=== PATIENT | male | born 1950 | race Caucasian/White ===

== ENCOUNTER → 2017-02-03 | Outpatient (CLI) | payer MEDICARE, BC ==
[~2017-02-03] MED LIST: CEFD300C PO; METH4TAB27 PO
[2017-02-03 14:21] VITALS: BP 149/79
--- NOTE | 2017-02-03 14:21 | Urgent Care T Sheet Gen (E) ---
Intake General Temperature (Fahrenheit): 98.5 Pulse: 59 Blood Pressure Systolic: 149 Blood Pressure Diastolic: 79 Respirations: 18 SPO2: 98 Description of Symptoms Patient presents with sore throat x 2 months. Patient states his throat is consistently sore. Notes PND, throat clearing and hoarse voice. States he could see a pus pocket over the weekend which ruptured. No fever. Patient states he has allergies and takes intermittent OTC meds. 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 History of Present Illness Allergies: Coded Allergies: No Known Drug Allergies (Unverified , 01/31/16) Respiratory Constitutional Symptoms: No syptoms reported EENTM: Nose Congestion Throat pain Throat swelling Respiratory: No symptoms reported Cardiovascular: No symptoms reported All Other Systems Reviewed Remaining Systems: All other systems reviewed with negative findings Past Dljwgaa-Gmvfwy-Fwrwvt Hx Surgeries/Hospitalizations Hospitalization/Surgery Hx: HTN Physical Exam Physical Exam General Appearance: WD/WN No apparent distress Eyes, Ears, Nose, Throat Ex: TMs normal Pharyngeal erythema (red streaks, PND , clearly irritated throat) Other (pale nasal turbinates with clear nasal drainage) Neck Exam: SuppleNo Lymphadenopathy Respiratory Exam: Lungs clear Normal breath sounds Cardiovascular Exam: Regular rate, rhythm Departure Urgent Care Impression Impression: Primary Impression: Allergic rhinitis Qualified Code: J30.1 - Allergic rhinitis due to pollen Additional Impression: Allergic pharyngitis Departure Disposition: HOME OR SELF-CARE Condition: Stable Referrals: KISHA MARTINEZ MD (PCP) Additional Instructions: Long discussion with patient regarding symptoms and exam findings. Instructed him to continue with daily allergy med I have started him on a Medrol dose pack to help with drainage. This should alleviate throat pain. No NSAIDs while on steroid I have also started him on Cefdinir x 7 days. Since his symptoms have lasted for 2 months I wanted to make sure there wasn't a secondary bacterial infection brewing Rest. Fluids Return as needed Patient understands DC instructions. All questions were answered. Scripts Methylprednisolone (Medrol Dosepack)21 Tab/Pkt Tablet6 Tab PO DAILY Inflammation #1 PKT Ref 0 6 tabs po on day 1 then decrease by 1 tab daily until packet is gone Prov:LAYLA REED 02/03/17 Cefdinir 300 Mg [id number] Mg PO BID #14 CAP Prov:LAYLA REED 02/03/17 End of report . LAYLA REED February 03, 2017 14:21
== END ==
LOC: MHUC 14:01
PROVIDERS: ATTEND Physician Assistant
DX: J30.1 Allergic rhinitis due to pollen (principal)
CPT/HCPCS: 99213